=== PATIENT | female | born 1995 | race Caucasian/White ===

== ENCOUNTER 2017-03-31 15:14 | Inpatient (IN) | payer OTHER ==
[2017-03-31] MEDS ORDERED: Sodium Chloride 0.9% 10 ML Syringe FLUSH PRN (15:23)
[2017-03-31] MEDS ORDERED: Ampicillin 2 GM in Sodium Chloride 0.9% 100 ML IV ONE (15:23)
[2017-03-31] MEDS ORDERED: Ampicillin 2 GM Vial ONE (15:27)
[2017-03-31] MEDS ORDERED: Sodium Chloride 0.9% 100 ML ONE (15:29)
[2017-03-31] MEDS ORDERED: Lactated Ringers 1,000 ML IV SCH (15:30)
[2017-03-31] MEDS ORDERED: Oxytocin/Lactated Ringers 10 UNIT/1,000 ML BAG IV SCH (15:30)
[2017-03-31] MEDS ORDERED: Oxytocin/Lactated Ringers 10 UNIT/1,000 ML BAG IV ONE (15:42)
--- NOTE | 2017-03-31 18:33 | PCM.SN ---
- Free Text/Narrative Note: History and physical on chart to be scanned. viable male. 1800. No lacerations. See trace view.
[2017-03-31] MEDS ORDERED: Benzocaine/Menthol 20%-0.5% Spray 56 GM Canister TOP PRN (18:46)
[2017-03-31] MEDS ORDERED: Lanolin 100% Cream 7 GM Tube TOP PRN (18:46)
[2017-03-31] MEDS ORDERED: Witch Hazel Medicated Pads 100/Jar TOP PRN (18:46)
[2017-03-31] MEDS ORDERED: Ampicillin 1 GM in Sodium Chloride 0.9% 100 ML IV SCH (19:30)
[2017-04-01] MEDS: Ibuprofen 600 MG Tab PO PRN ×3 (01:48→21:12)
[2017-04-01] MEDS ORDERED: Sodium Chloride 0.65% Nasal Spray 45 ML Bottle NAS PRN (10:10)
--- NOTE | 2017-04-01 10:20 | PCM.PNPP ---
- General Info Date of Service: 04/01/17 Admission Dx/Problem (Free Text): Spontaneous vaginal delivery on 03/31/17 Functional Status: Reports: pain controlled - Review of Systems General: Reports: No Symptoms HEENT: Reports: no symptoms Pulmonary: Reports: no symptoms Cardiovascular: Reports: No Symptoms Gastrointestinal: Reports: No symptoms Genitourinary: Reports: no symptoms Musculoskeletal: Reports: no symptoms Skin: Reports: other (Petechiae face and upper back) Neurological: Reports: No Symptoms Psychiatric: Reports: no symptoms - General Info Date of Service: 04/01/17 - Patient Data Vital Signs - most recent: Last Vital Signs Temp 97.9 F 04/01/17 09:00 Pulse 86 04/01/17 09:00 Resp 16 04/01/17 09:00 BP 110/65 04/01/17 09:00 Pulse Ox 98 04/01/17 09:00 Weight - most recent: 235 lb I&O - last 24 hours: Intake & Output 03/31/17 04/01/17 04/01/17 22:59 06:59 14:59 Intake Total 800 Balance 800 Lab Results - last 24 hrs: Laboratory Results - last 24 hr 03/31/17 03/31/17 Range/Units 15:40 15:40 WBC 8.99 (3.98-10.04) K/mm3 RBC 4.38 (3.98-5.22) M/mm3 Hgb 12.5 (11.2-15.7) gm/L Hct 36.9 (34.1-44.9) % MCV 84.2 (79.4-94.8) fl MCH 28.5 (25.6-32.2) pg MCHC 33.9 (32.2-35.5) g/dl RDW Std Deviation 41.6 (36.4-46.3) fL Plt Count 276 (182-369) K/mm3 MPV 11.2 (9.4-12.3) fl Neut % (Auto) 64.2 (34.0-71.1) % Lymph % (Auto) 26.9 (19.3-51.7) % Door % (Auto) 8.2 (4.7-12.5) % Eos % (Auto) 0.1 L (0.7-5.8) Baso % (Auto) 0.0 L (0.1-1.2) % Neut # (Auto) 5.77 (1.56-6.13) K/mm3 Lymph # (Auto) 2.42 (1.18-3.74) K/mm3 Door # (Auto) 0.74 H (0.24-0.36) K/mm3 Eos # (Auto) 0.01 L (0.04-0.36) K/mm3 Baso # (Auto) 0.00 L (0.01-0.08) K/mm3 Blood Type O NEGATIVE Gel Antibody Screen Negative Screen 0 ros/5 flds - neg RhIG Candidate? Yes Rhogam Indicated Yes, baby rh pos H Med Orders - Current: Current Medications Benzocaine/Menthol (Dermoplast Pain Relief [place]) 0 gm TOP ASDIRECTED PRN PRN Reason: Perineal Comfort Measure Last Admin: 03/31/17 20:14 Dose: 1 can Emollient Ointment (Lansinoh Hpa) 0 gm TOP ASDIRECTED PRN PRN Reason: Sore Nipples Ibuprofen (Motrin) 600 mg PO Q6H PRN PRN Reason: Mild pain or fever Last Admin: 04/01/17 01:48 Dose: 600 mg Non-Formulary Medication (Acyclovir) 400 mg PO BID DAVID Sodium Chloride ([place] Nasal [place]) 1 ml JOHANA Q2H PRN PRN Reason: Congestion Witch Marie (Tucks) 1 pad TOP ASDIRECTED PRN PRN Reason: Hemorrhoid pain Last Admin: 03/31/17 20:14 Dose: 1 tub Discontinued Medications Ampicillin Sodium (Ampicillin) Confirm Administered Dose 2 gm .ROUTE .STK-MED ONE Stop: 03/31/17 15:28 Last Admin: 03/31/17 15:53 Dose: Not Given Ampicillin Sodium 2 gm/ Sodium (Chloride) 100 mls @ 200 mls/hr IV ONETIME ONE Stop: 03/31/17 15:52 Last Admin: 03/31/17 15:30 Dose: 200 mls/hr Ampicillin Sodium 1 gm/ Sodium (Chloride) 100 mls @ 200 mls/hr IV Q4H DAVID Lactated Ringer's (Ringers, Lactated) 1,000 mls @ 100 mls/hr IV ASDIRECTED DAVID Last Admin: 03/31/17 15:30 Dose: 100 mls/hr Oxytocin/Lactated Ringer's (Pitocin In Lr 10 Units/1,000 Ml) 10 unit in 1,000 mls @ 500 mls/hr IV TITRATE DAVID PRN Reason: Protocol Last Admin: 03/31/17 18:05 Dose: 500 ml/hr, 500 mls/hr Sodium Chloride (Normal Saline) Confirm Administered Dose 100 mls @ as directed .ROUTE .Knock KnockK-MED ONE Stop: 03/31/17 15:30 Last Admin: 03/31/17 15:53 Dose: Not Given Oxytocin/Lactated Ringer's (Pitocin In Lr 10 Units/1,000 Ml) Confirm Administered Dose 10 unit in 1,000 mls @ as directed IV .STK-MED ONE Stop: 03/31/17 15:43 Last Admin: 03/31/17 15:54 Dose: Not Given Sodium Chloride (Saline Flush) 10 ml FLUSH ASDIRECTED PRN PRN Reason: Keep Vein Open - Interaction Infant Disposition, : [place] in Room with Family Interaction: Holding Infant Feeding: Continues to Breastfeed Support Person: - Recovery Exam Fundal Tone: Firm Fundal Level: 1 Fingerbreadths Above Umbilicus Fundal Placement: Midline Lochia Amount: Small Lochia Color: Rubra/Red Episiotomy/Laceration: None Bladder Status: Voiding Urinary Elimination: Voided - Exam General: alert, oriented HEENT: Other (No erythema or ecchymosis, petechiae of both cheeks (probably from vigorous pushing at delivery)) Neck: supple Lungs: Clear to auscultation, Normal respiratory effort Cardiovascular: Regular Rate, Regular Rhythm Abdomen: bowel sounds present, soft, no tenderness, no distension Extremities: no edema Skin: warm, dry, intact, other (Petechiae upper back (probably from pushing hard with contractions in labor)) Psy/Mental Status: alert, normal affect, normal mood - Problem List & Annotations (1) 38 weeks gestation of SNOMED Code(s): 24599815 Code(s): Z3A.38 - 38 WEEKS GESTATION OF Status: Acute Current Visit: Yes (2) Rh negative, delivered, current hospitalization SNOMED Code(s): 245016454, 958130147 Code(s): O09.899 - SUPERVISION OF OTHER HIGH RISK PREGNANCIES, UNSP TRIMESTER Status: Acute Current Visit: Yes (3) Vaginal delivery SNOMED Code(s): 912125191 Status: Acute Current Visit: No (4) GBS carrier SNOMED Code(s): 3843456992588 Code(s): Z22.330 - CARRIER OF GROUP B STREPTOCOCCUS Status: Acute Current Visit: Yes - Problem List Review Problem List Initiated/Reviewed/Updated: No - My Orders Last 24 Hours: My Active Orders 04/01/17 10:10 Sodium Chloride 0.65% [[place] Nasal [place]] 1 ml JOHANA Q2H PRN 04/01/17 21:00 Acyclovir 400 mg PO BID - Plan Plan:: GBS carrier patient received 1 dose of antibiotics IV prior to delivery probably home tomorrow
[2017-04-01 21:07] VITALS: BP 108/59
[2017-04-01] MEDS: Acyclovir 200 MG Cap PO SCH (22:31)
--- NOTE | 2017-04-02 07:46 | PCM.DCSUM1 ---
Discharge Summary - Hospital Course Free Text/Narrative:: [facility] Provider Simple Note Patient Name: IRINA BERGMAN Date of : 89 Patient Status: Inpatient Attending Provider: Yoselyn Henderson Date: 03/31/17 18:30 Initialization Date: 03/31/17 18:30 - Free Text/Narrative Note: History and physical on chart to be scanned. viable male. 1800. No lacerations. See trace view. HPI Initial Comments: [facility] Provider Simple Note Patient Name: IRINA BERGMAN Date of : [birth year] Patient Status: Inpatient Attending Provider: Yoselyn Henderson Date: 03/31/17 18:30 Initialization Date: 03/31/17 18:30 - Free Text/Narrative Note: History and physical on chart to be scanned. viable male. 1800. No lacerations. See trace view. Brief History: [facility] . Provider Simple Note. [facility] [id number]. Date of : Patient Status: Inpatient. Attending Provider: Yoselyn HendersonAccount Number: [id number]. Date: 03/31/17 18:30Initialization Date: 03/31/17 18:30. - Free Text/Narrative. Note: History and physical on chart to be scanned. viable male. 1800. No lacerations. See trace view. - Discharge Data Discharge Date: 04/02/17 Discharge Disposition: Home, Self-Care 01 Condition: Good - Discharge Diagnosis/Problem(s) (1) 38 weeks gestation of SNOMED Code(s): 55654833 ICD Code: Z3A.38 - 38 WEEKS GESTATION OF Status: Acute Current Visit: Yes (2) Rh negative, delivered, current hospitalization SNOMED Code(s): 906236508, 793920888 ICD Code: O09.899 - SUPERVISION OF OTHER HIGH RISK PREGNANCIES, UNSP TRIMESTER Status: Acute Current Visit: Yes (3) Vaginal delivery SNOMED Code(s): 666104546 Status: Acute Current Visit: No (4) GBS carrier SNOMED Code(s): 1977467409679 ICD Code: Z22.330 - CARRIER OF GROUP B STREPTOCOCCUS Status: Acute Current Visit: Yes - Patient Summary/Data Complications: None Consults: None Hospital Course: Uneventful - Patient Instructions Diet: Heart Healthy Diet Driving: Do Not Drive (M 48 hours) Showering/Bathing: May Shower Notify Provider of: Fever, Increased Pain, Swelling and Redness, Drainage, Nausea and/or Vomiting - Discharge Plan Home Medications: Home Meds Acetaminophen [Tylenol] 650 mg PO Q4H PRN #0 tablet 07/07/15 [Rx] Acyclovir 400 mg PO BID 03/31/17 [History] Benzocaine/Menthol [Dermoplast Pain Relief [place]] 1 spray TOP ASDIRECTED PRN #0 canister 04/02/17 [Rx] Ibuprofen [IJD: Ibuprofen] 200 - 600 mg PO Q6H PRN #0 tablet 04/02/17 [Rx] Sodium Chloride 0.65% [[place] Nasal [place]] 1 ml JOHANA Q2H PRN #0 bottle 04/02/17 [ Rx] Witch Marie [Tucks] 1 pad TOP ASDIRECTED PRN #0 pad 04/02/17 [Rx] Referrals: Elizabeth Olsen MD [Physician] - (6 weeks will call Monday to see if need be seen sooner) - Discharge Summary/Plan Comment DC Time >30 min.: No - Patient Data Vitals - Most Recent: Last Vital Signs Temp 98.2 F 04/01/17 21:01 Pulse 89 04/01/17 21:01 Resp 20 04/01/17 21:01 BP 108/59 L 04/01/17 21:01 Pulse Ox 98 04/01/17 21:01 Weight - Most Recent: 235 lb I&O - Last 24 hours: Intake & Output 04/01/17 04/02/17 04/02/17 22:59 06:59 14:59 Intake Total 240 Balance 240 Lab Results - Last 24 hrs: Laboratory Results - last 24 hr 03/31/17 Range/Units 15:40 Blood Type O NEGATIVE Gel Antibody Screen Negative Screen 0 ros/5 flds - neg RhIG Candidate? Yes Rhogam Indicated Yes, baby rh pos H Med Orders - Current: Current Medications Acyclovir (Zovirax) 400 mg PO BID [facility] Last Admin: 04/01/17 22:31 Dose: Not Given Benzocaine/Menthol (Dermoplast Pain Relief [place]) 0 gm TOP ASDIRECTED PRN PRN Reason: Perineal Comfort Measure Last Admin: 03/31/17 20:14 Dose: 1 can Emollient Ointment (Lansinoh Hpa) 0 gm TOP ASDIRECTED PRN PRN Reason: Sore Nipples Ibuprofen (Motrin) 600 mg PO Q6H PRN PRN Reason: Mild pain or fever Last Admin: 04/01/17 21:12 Dose: 600 mg Sodium Chloride ([place] Nasal [place]) 1 ml JOHANA Q2H PRN PRN Reason: Congestion Last Admin: 04/01/17 21:19 Dose: 2 applic Witch Marie (Tucks) 1 pad TOP ASDIRECTED PRN PRN Reason: Hemorrhoid pain Last Admin: 03/31/17 20:14 Dose: 1 tub Discontinued Medications Ampicillin Sodium (Ampicillin) Confirm Administered Dose 2 gm .ROUTE .STK-MED ONE Stop: 03/31/17 15:28 Last Admin: 03/31/17 15:53 Dose: Not Given Ampicillin Sodium 2 gm/ Sodium (Chloride) 100 mls @ 200 mls/hr IV ONETIME ONE Stop: 03/31/17 15:52 Last Admin: 03/31/17 15:30 Dose: 200 mls/hr Ampicillin Sodium 1 gm/ Sodium (Chloride) 100 mls @ 200 mls/hr IV Q4H DAVID Lactated Ringer's (Ringers, Lactated) 1,000 mls @ 100 mls/hr IV ASDIRECTED [facility] Last Admin: 03/31/17 15:30 Dose: 100 mls/hr Oxytocin/Lactated Ringer's (Pitocin In Lr 10 Units/1,000 Ml) 10 unit in 1,000 mls @ 500 mls/hr IV TITRATE DAVID PRN Reason: Protocol Last Admin: 03/31/17 18:05 Dose: 500 ml/hr, 500 mls/hr Sodium Chloride (Normal Saline) Confirm Administered Dose 100 mls @ as directed .ROUTE .STK-MED ONE Stop: 03/31/17 15:30 Last Admin: 03/31/17 15:53 Dose: Not Given Oxytocin/Lactated Ringer's (Pitocin In Lr 10 Units/1,000 Ml) Confirm Administered Dose 10 unit in 1,000 mls @ as directed IV .[facility]-MED ONE Stop: 03/31/17 15:43 Last Admin: 03/31/17 15:54 Dose: Not Given Sodium Chloride (Saline Flush) 10 ml FLUSH ASDIRECTED PRN PRN Reason: Keep Vein Open *Q Meaningful Use (DIS) - VTE *Q VTE Criteria *Q: - Stroke *Q Stroke Criteria *Q: - AMI *Q AMI Criteria *Q:
[2017-04-02] MEDS: Acyclovir 200 MG Cap PO SCH (10:08)
== END 2017-04-02 09:05 | disposition home or self-care (01) | DRG 775 ==
LOC: JD.OBCHECK 15:14 → JD.OB 15:15 → JD.OBCHECK 15:20 → JD.OB 15:21 → OBSVTOIN 18:00
PROVIDERS: ADMIT Obstetrics & Gynecology; ATTEND Obstetrics & Gynecology
PROC: 10E0XZZ Delivery of Products of Conception, External Approach (ICD-10-PCS; principal; 2017-03-31)
PROC: 10907ZC Drainage of Amniotic Fluid, Therapeutic from Products of Conception, Via Natural or Artificial Opening (ICD-10-PCS; 2017-03-31)
DX: O99.824 Streptococcus B carrier state complicating childbirth (principal); Z3A.37 37 weeks gestation of pregnancy; Z37.0 Single live birth; Z88.6 Allergy status to analgesic agent; Z91.09 Other allergy status, other than to drugs and biological substances
CPT/HCPCS: 36415; 85025; 85461; 86850; 86900; 86901; A9270-GY; J0290; J2590; J2790; J7030; J7120

== ENCOUNTER 2019-10-06 19:38 | Emergency (ER) | payer OTHER ==
[2019-10-06 20:03] VITALS: BP 118/68; PULSE 88
--- NOTE | 2019-10-06 20:42 | EDM.PDOC ---
ED HPI GENERAL MEDICAL PROBLEM - General Chief Complaint: LCPC Problem Stated Complaint: POSSIBLE MISCARRIAGE Time Seen by Provider: 10/06/19 19:41 Source of Information: Reports: Patient History Limitations: Reports: No Limitations - History of Present Illness INITIAL COMMENTS - FREE TEXT/NARRATIVE: Mrs. Talley is a very pleasant woman with a past history significant for morbid obesity and polycystic ovarian syndrome, treated with metformin, who states that she was diagnosed with a UTI on 09/18/2019, at the walk-in clinic. She was prescribed trimethoprim/sulfamethoxazole, that she took for 4 days before she developed a side effect, therefore was switched to 10 days of nitrofurantoin, which she completed. Her urinary symptoms subsequently resolved and have not recurred. She states that her LMP was on 09/06/2020. She had a positive home test on 09/30/2019, followed by 2 quantitative hCGs in the clinic. This would put her at 5 weeks 3 days gestation today, by dates, with an LISA of 06/04/2020. She has not undergone an ultrasound during this . She is . She now presents to the ED stating that she has been experiencing 1 week of right-sided abdominal pain throbbing in character, then became much worse and sharp and stabbing in character around 18:00 this evening. She also has right flank pain that radiates to her right lower quadrant, her right groin, and down her right lower extremity. She has not identified any modifiers of her pain. She has also been experiencing come and go nausea without emesis over the past week. She has also had low-grade fevers, typically around 101-102, on and off for the past week, up to a Tmax of 102.4 yesterday. She denies having any recent vaginal bleeding or discharge. No recent cough or dyspnea. No history of kidney stones. No prior similar symptoms. The patient last ate around 17:30 tonight. The patient's PCP is JHONNY Weston. Her LCPC is Dr. Elizabeth Olsen. She received an influenza vaccine this season. Right Abdomen Pain Score (Numeric/FACES): 7 - Related Data Allergies Allergy/AdvReac Type Severity Reaction Status Date / Time adhesive tape Allergy Rash Verified 08/12/18 14:57 nifedipine [From Procardia] Allergy Rash Verified 08/12/18 15:05 morphine AdvReac Respiratory Verified 08/12/18 14:57 Depression Home Meds: Home Meds . [No Known Home Meds] 10/06/19 [History] Past Medical History LCPC History: Reports: Polycystic Ovaries : 4 Para: 3 Endocrine/Metabolic History: Reports: Obesity/BMI 30+ - Infectious Disease History Infectious Disease History: Reports: Herpes - Past Surgical History HEENT Surgical History: Reports: Tonsillectomy Musculoskeletal Surgical History: Reports: Arthroscopic Knee (left ACL repair) Social & Family History - Family History Family Medical History: Noncontributory - Tobacco Use Smoking Status *Q: Never Smoker - Caffeine Use Caffeine Use: Reports: Coffee, Tea - Alcohol Use Alcohol Use History: No - Recreational Drug Use Recreational Drug Use: No - Living Situation & Occupation Living situation: Reports: , with Spouse, with Family (3 kids) 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 ED EXAM, GI/ABD - Physical Exam Exam: See Below Exam Limited By: No Limitations General Appearance: Alert, WD/WN, No Apparent Distress, Anxious Eyes: Bilateral: Normal Appearance, EOMI Ears: Normal External Exam, Hearing Grossly Normal Nose: Normal Inspection Throat/Mouth: Normal Inspection, Normal Lips, Normal Voice, No Airway Compromise Head: Atraumatic, Normocephalic Neck: Normal Inspection, Full Range of Motion Respiratory/Chest: No Respiratory Distress, Lungs Clear, Normal Breath Sounds, No Accessory Muscle Use Cardiovascular: Normal Peripheral Pulses, Regular Rate, Rhythm, No Edema, No Gallop, No JVD, No Murmur, No Rub GI/Abdominal Exam: Normal Bowel Sounds, Soft, No Organomegaly, No Distention, No Abnormal Bruit, No Mass, Tender (Exquisite tenderness to the mid-right abdomen, and tender in the right lower quadrant, as well. Rovsing sign is present, but the patient's abdomen is otherwise nontender. Obturator sign absent. Psoas maneuver induces relief. Heel drop sign present.) (Female) Exam: Deferred Rectal (Female) Exam: Deferred Back Exam: Normal Inspection, Full Range of Motion, CVA Tenderness (R) ( percussion induces abdominal pain). No: CVA Tenderness (L) Extremities: Normal Inspection, Normal Range of Motion, No Pedal Edema, Normal Capillary Refill Neurological: Alert, Oriented, Normal Cognition, No Motor/Sensory Deficits Psychiatric: Anxious Skin Exam: Warm, Dry, Intact, Normal Color, No Rash Course - Vital Signs Last Recorded V/S: Last Vital Signs Temp 36.9 C 10/06/19 19:59 Pulse 88 10/06/19 19:59 Resp 20 10/06/19 19:59 BP 118/68 10/06/19 19:59 Pulse Ox 99 10/06/19 19:59 - Orders/Labs/Meds Orders: Active Orders 24 hr Category Date Time Status Abdomen Pelvis w Cont [CT] Stat Exams 10/06/19 20:34 Taken OB Transvaginal [US] Stat Exams 10/06/19 20:32 Taken Retroperitoneal Comp [US] Stat Exams 10/06/19 20:33 Taken Lactated Ringers [Ringers, Lactated] 1,000 ml Med 10/06/19 20:45 Active IV ASDIRECTED Sodium Chloride 0.9% [Saline Flush] Med 10/06/19 23:05 Active 10 ml FLUSH ONETIME PRN Medication Orders Lactated Ringer's (Ringers, Lactated) 1,000 mls @ 125 mls/hr IV ASDIRECTED DAVID Last Admin: 10/06/19 20:46 Dose: 125 mls/hr Sodium Chloride (Saline Flush) 10 ml FLUSH ONETIME PRN PRN Reason: KEEP VEIN OPEN Last Admin: 10/07/19 00:01 Dose: 10 ml Labs: Laboratory Tests 10/06/19 10/06/19 10/06/19 Range/Units 20:10 20:10 20:10 WBC 8.49 (3.98-10.04) K/mm3 RBC 4.84 (3.98-5.22) M/mm3 Hgb 13.6 (11.2-15.7) gm/dl Hct 41.5 (34.1-44.9) % MCV 85.7 (79.4-94.8) fl MCH 28.1 (25.6-32.2) pg MCHC 32.8 (32.2-35.5) g/dl RDW Std Deviation 41.6 (36.4-46.3) fL Plt Count 344 (182-369) K/mm3 MPV 10.7 (9.4-12.3) fl Neutrophils % (Manual) 73 H (40-60) % Band Neutrophils % 0 (0-10) % Lymphocytes % (Manual) 24 (20-40) % Atypical Lymphs % 0 % Monocytes % (Manual) 2 (2-10) % Eosinophils % (Manual) 1 (0.7-5.8) % Basophils % (Manual) 0 L (0.1-1.2) Platelet Estimate Adequate RBC Morph Comment Normal Sodium 140 (136-145) mEq/L Potassium 3.7 (3.5-5.1) mEq/L Chloride 103 (98-107) mEq/L Carbon Dioxide 27 (21-32) mEq/L Anion Gap 13.7 (5-15) BUN 16 (7-18) mg/dL Creatinine 1.0 (0.55-1.02) mg/dL Est Cr Clr Drug Dosing 64.89 mL/min Estimated GFR (MDRD) > 60 (>60) mL/min BUN/Creatinine Ratio 16.0 (14-18) Glucose 93 (74-106) mg/dL Calcium 9.7 (8.5-10.1) mg/dL Total Bilirubin 0.6 (0.2-1.0) mg/dL AST 11 L (15-37) U/L ALT 24 (14-59) U/L Alkaline Phosphatase 79 (46-116) U/L Total Protein 7.9 (6.4-8.2) g/dl Albumin 4.0 (3.4-5.0) g/dl Globulin 3.9 gm/dL Albumin/Globulin Ratio 1.0 (1-2) HCG, Quant 4645.0 mIU/mL Urine Color (Yellow) Urine Appearance (Clear) Urine pH (5.0-8.0) Ur Specific [place] (1.005-1.030) Urine Protein (Negative) Urine Glucose (UA) (Negative) Urine Ketones (Negative) Urine Occult Blood (Negative) Urine Nitrite (Negative) Urine Bilirubin (Negative) Urine Urobilinogen (0.2-1.0) Ur Leukocyte Esterase (Negative) Urine RBC (0-5) /hpf Urine WBC (0-5) /hpf Ur Squamous Epith Cells (0-5) /hpf Amorphous Sediment (NOT SEEN) /hpf Urine Bacteria (FEW) /hpf Urine Mucus (FEW) /hpf Blood Type O NEGATIVE 10/06/19 Range/Units 20:33 WBC (3.98-10.04) K/mm3 RBC (3.98-5.22) M/mm3 Hgb (11.2-15.7) gm/dl Hct (34.1-44.9) % MCV (79.4-94.8) fl MCH (25.6-32.2) pg MCHC (32.2-35.5) g/dl RDW Std Deviation (36.4-46.3) fL Plt Count (182-369) K/mm3 MPV (9.4-12.3) fl Neutrophils % (Manual) (40-60) % Band Neutrophils % (0-10) % Lymphocytes % (Manual) (20-40) % Atypical Lymphs % % Monocytes % (Manual) (2-10) % Eosinophils % (Manual) (0.7-5.8) % Basophils % (Manual) (0.1-1.2) Platelet Estimate RBC Morph Comment Sodium (136-145) mEq/L Potassium (3.5-5.1) mEq/L Chloride (98-107) mEq/L Carbon Dioxide (21-32) mEq/L Anion Gap (5-15) BUN (7-18) mg/dL Creatinine (0.55-1.02) mg/dL Est Cr Clr Drug Dosing mL/min Estimated GFR (MDRD) (>60) mL/min BUN/Creatinine Ratio (14-18) Glucose (74-106) mg/dL Calcium (8.5-10.1) mg/dL Total Bilirubin (0.2-1.0) mg/dL AST (15-37) U/L ALT (14-59) U/L Alkaline Phosphatase (46-116) U/L Total Protein (6.4-8.2) g/dl Albumin (3.4-5.0) g/dl Globulin gm/dL Albumin/Globulin Ratio (1-2) HCG, Quant mIU/mL Urine Color Yellow (Yellow) Urine Appearance Clear (Clear) Urine pH 7.0 (5.0-8.0) Ur Specific [place] 1.025 (1.005-1.030) Urine Protein Negative (Negative) Urine Glucose (UA) Negative (Negative) Urine Ketones Trace H (Negative) Urine Occult Blood Negative (Negative) Urine Nitrite Negative (Negative) Urine Bilirubin Negative (Negative) Urine Urobilinogen 0.2 (0.2-1.0) Ur Leukocyte Esterase Negative (Negative) Urine RBC 0-5 (0-5) /hpf Urine WBC 0-5 (0-5) /hpf Ur Squamous Epith Cells 5-10 H (0-5) /hpf Amorphous Sediment Moderate H (NOT SEEN) /hpf Urine Bacteria Few (FEW) /hpf Urine Mucus Few (FEW) /hpf Blood Type Meds: Medications Generic Name Dose Route Start Last Admin Trade Name Freq PRN Reason Stop Dose Admin Lactated Ringer's 1,000 mls @ 125 mls/hr 10/06/19 20:45 10/06/19 20:46 Ringers, Lactated IV 125 mls/hr ASDIRECTED DAVID Administration Sodium Chloride 10 ml 10/06/19 23:05 10/07/19 00:01 Saline Flush FLUSH 10 ml ONETIME PRN Administration KEEP VEIN OPEN Discontinued Medications Generic Name Dose Route Start Last Admin Trade Name Freq PRN Reason Stop Dose Admin Diatrizoate Meglum/Diatrizoate Sod 60 ml 10/06/19 21:15 10/07/19 00:00 Gastrografin 37% PO 10/06/19 21:16 60 ml ONETIME ONE Administration Iopamidol 100 ml 10/07/19 00:05 10/07/19 00:07 Isovue-300 (61%) IVPUSH 10/07/19 00:06 100 ml ONETIME ONE Administration - Re-Assessments/Exams Free Text/Narrative Re-Assessment/Exam: 10/06/19 20:36 The patient's situation is complicated by her early . Her physical examination is highly concerning for acute appendicitis, possibly with perforation, however, it is also possible that she is suffering from an unusual presentation of a ruptured ectopic . If that were the case, however, one would wonder why the patient is not having any vaginal bleeding. It is also possible that the patient is suffering from a right-sided ureterolith, however, she complains of right flank pain, but on examination, she has no CVA tenderness , and a ureterolith can cause abdominal pain, but should not cause abdominal tenderness, whereas in this case, the patient has exquisite right abdominal tenderness. Obviously, the patient would like to avoid radiation as much as possible, although I explained to the patient that it is imperative that we make sure that she does not have appendicitis, because if left untreated, she will likely lose her . The patient seems to understand that. We will proceed as follows: The patient will provide a urine sample. An IV will be placed to draw blood and give IV fluid. She declined an offer for both pain medication and anti-nausea medicine at this time. She will start drinking oral contrast. She will be taken over to the ultrasound suite to undergo a transvaginal ultrasound to evaluate for an ectopic , as well as a renal ultrasound to evaluate for hydronephrosis/hydroureter, consistent with a ureterolith. If her ultrasounds are nondiagnostic, she will then undergo a CT scan of the abdomen and pelvis with oral and IV contrast. 10/06/19 22:30 The patient's CBC is unremarkable. Her CMP is unremarkable. Her quantitative hCG is 4645. Transvaginal ultrasound is read by [facility] as: 1. Single intrauterine gestation. 2. There is probably a hemorrhagic corpus luteum cyst of the right ovary. Retroperitoneal ultrasound is read by [facility] as "No right hydronephrosis." The patient's ABO-Rh is still pending. The patient will proceed for a CT scan of her abdomen and pelvis with oral and IV contrast. 10/06/19 22:41 The patient is upset about the prospect of undergoing a CT scan, and had convinced herself that she was not going to do it, therefore she did not drink the oral contrast as planned. I explained to the patient that at this point, the patient has appendicitis until proven otherwise, and that the only modality that we have at our disposal, other than having the patient go to the operating room and have the surgeon look directly, which is not an option for us, since the anesthesia itself carries risk, is a CT scan. MRI is not available to us. The patient got her on the phone and I explained the same. The patient' s opined that the patient should proceed with a CT scan, and the patient has agreed. She will start drinking the oral contrast now. 10/07/19 00:51 The patient's blood type is O-Neg CT of the abdomen and pelvis with oral and IV contrast is read by [facility] as: 1. No evidence of appendicitis with normal appendix identified. 2. Tiny cystic structure within the uterus which is consistent with known intrauterine gestational sac. 3. Small complex right ovarian lesion which corresponds to ultrasound finding and likely represents a corpus luteum. 4. No acute abdominal findings. 10/07/19 01:06 Test results discussed with the patient and her (now present). As above , today's workup is entirely unremarkable, and does not explain the cause of her pain or abdominal tenderness. We can blame the hemorrhagic corpus luteum on the right ovary, except that its location is in the pelvis, yet her tenderness is in the lower right quadrant of her abdomen. Additionally, we would not expect a hemorrhagic corpus luteum to cause as much pain and tenderness as the patient is experiencing, nor would it explain the patient's fever, therefore I am reluctant to blame the corpus luteum. I offered to place the patient into observation, but she would prefer to go home. I would like her to follow-up with Dr. Olsen at the next available appointment. Departure - Departure Time of Disposition: 01:07 Disposition: Home, Self-Care 01 Condition: Good Clinical Impression: Right lower quadrant abdominal pain of unknown etiology, and not yet delivered in first trimester - Discharge Information *PRESCRIPTION DRUG MONITORING PROGRAM REVIEWED*: Not Applicable *COPY OF PRESCRIPTION DRUG MONITORING REPORT IN PATIENT JUNIOR: Not Applicable Referrals: Elizabeth Olsen MD [Primary Care Provider] - Radha Arana PA-C [Ordering Only Provider] - Forms: ED Department Discharge Additional Instructions: You were seen in the emergency room for 1 week of low-level lower right abdominal pain that got worse tonight, a low-grade fever that got worse yesterday, and nausea, associated with early . Workup in the ER included blood work, a urinalysis, an obstetric ultrasound, a renal ultrasound, and a CT scan of your abdomen and pelvis. Your entire workup was unremarkable, and does not explain the cause of your pain. You were found to have a small complex right ovarian lesion that the Radiologist felt was likely a hemorrhagic corpus luteum. It is possible that this is the cause of your pain. Your quantitative hCG ( hormone level) was 4645. Your blood type is O- negative. Placement into observation was offered, but declined. Take [id number] Tylenol as needed for discomfort. We recommend that you follow-up with your [employer]n Door Builder, Dr. Elizabeth Olsen, at the next available appointment. Let the ged teacher know that you are following up from the ER. If any other problems, please do not hesitate to return to the ER. Sepsis Event Note - Evaluation Sepsis Screening Result: No Definite Risk - Focused Exam Vital Signs: Vital Signs Temp Pulse Resp BP Pulse Ox 10/06/19 19:59 36.9 C 88 20 118/68 99 Date Exam was Performed: 10/07/19 Time Exam was Performed: 00:55 - My Orders Last 24 Hours: My Active Orders 10/06/19 20:32 OB Transvaginal [US] Stat 10/06/19 20:33 Retroperitoneal Comp [US] Stat 10/06/19 20:34 Abdomen Pelvis w Cont [CT] Stat 10/06/19 20:45 Lactated Ringers [Ringers, Lactated] 1,000 ml IV ASDIRECTED 10/06/19 23:05 Sodium Chloride 0.9% [Saline Flush] 10 ml FLUSH ONETIME PRN - Assessment/Plan Last 24 Hours: My Active Orders 10/06/19 20:32 OB Transvaginal [US] Stat 10/06/19 20:33 Retroperitoneal Comp [US] Stat 10/06/19 20:34 Abdomen Pelvis w Cont [CT] Stat 10/06/19 20:45 Lactated Ringers [Ringers, Lactated] 1,000 ml IV ASDIRECTED 10/06/19 23:05 Sodium Chloride 0.9% [Saline Flush] 10 ml FLUSH ONETIME PRN
[2019-10-06] MEDS ORDERED: Lactated Ringers 1,000 ML IV SCH (20:45)
[2019-10-06] MEDS ORDERED: Diatrizoate Meglumine/Diatrizoate Sodium 37% 120 ML Bottle PO ONE (21:15)
[2019-10-06] MEDS ORDERED: Sodium Chloride 0.9% 10 ML Syringe FLUSH PRN (23:05)
[2019-10-06] MEDS ORDERED: Iopamidol 755 Mg/ML 100 ML Bottle IVPUSH ONE (23:05)
[2019-10-07] MEDS ORDERED: Iopamidol 612 MG/ML 100 ML Bottle IVPUSH ONE (00:05)
--- NOTE | 2019-10-07 07:25 | US ---
Renal ultrasound: Multiple real-time images were obtained transabdominally. Kidneys show no hydronephrosis or mass. Resistivity indices are within normal limits. Right kidney length is 10.9 cm and left kidney length is 10.4 cm. Bilateral ureteral jets are seen within the bladder. Bladder empties completely on post void exam. Impression: 1. No abnormality is identified on renal ultrasound exam. Diagnostic code #1 This report was dictated in [place] Standard Time I agree with preliminary report from [facility], finalized on 10/06/19, 11:08 PM Central Time
--- NOTE | 2019-10-07 07:25 | CT ---
CT abdomen and pelvis Technique: Multiple axial sections were obtained from above the dome of the diaphragm inferiorly through the pubic symphysis. Intravenous and oral contrast was utilized. Findings: Visualized lung bases show nothing acute. Liver contains no focal abnormality. Gallbladder contains no calcified gallstones. Spleen appears within normal limits. Adrenal glands show no nodule. Kidneys show contrast enhancement without hydronephrosis or mass. Pancreas contains no focal abnormality. Aorta shows no aneurysm. No retroperitoneal adenopathy or mesenteric abnormalities are seen. Small gestational sac is noted within the endometrial cavity which was noted on recent ultrasound exam performed earlier on the same day (9:24 PM). No adnexal abnormalities are seen. Small collapsing corpus luteum cyst is noted within the right ovary measuring 2.5 cm. Appendix is seen and is normal in size. No free fluid or inflammatory change is seen Bone window settings were reviewed which appears within normal limits. Impression: 1. Nothing acute is appreciated on CT study of the abdomen and pelvis. 2. Small gestational sac is noted within the endometrial cavity seen on recent ultrasound. Diagnostic code #1 This report was dictated in [place] Standard Time I agree with preliminary report from [facility], finalized on 10/07/19, 1:41 AM Central Time
--- NOTE | 2019-10-07 07:30 | US ---
First trimester obstetrical ultrasound: Multiple real-time images were obtained transvaginally. Transabdominal imaging was obtained of the right lower abdomen. Small intrauterine gestational sac is seen. Yolk sac is noted but is too early to visualized pole. No subchorionic hemorrhage is seen. Small moderate free fluid is seen believed to be incidental. Complicated finding noted within the right ovary measuring 2.3 cm in greatest size. This is most likely due to hemorrhagic corpus luteum cyst. No additional adnexal or ovarian abnormalities are seen. Impression: 1. Small intrauterine gestational sac containing yolk sac. pole not identified at this time but this is most likely due to early gestational age. 2. 2.3 cm complicated finding within the right ovary most likely representing hemorrhagic corpus luteum cyst. Diagnostic code #2 This report was dictated in [place] Standard Time I agree with preliminary report from [facility], finalized on 10/06/19, 11:07 PM Central Time
== END 2019-10-07 01:22 | disposition home or self-care (01) ==
LOC: JD.ED 19:38
DX: O99.89 Other specified diseases and conditions complicating pregnancy, childbirth and the puerperium (principal); R10.31 Right lower quadrant pain; O99.211 Obesity complicating pregnancy, first trimester; E66.9 Obesity, unspecified; Z3A.01 Less than 8 weeks gestation of pregnancy; Z91.09 Other allergy status, other than to drugs and biological substances; Z88.5 Allergy status to narcotic agent
CPT/HCPCS: 36415; 74177; 76770; 76817; 80053; 81001; 84702; 85007; 85027; 86900; 86901; 96360; 96361; 99284; J7120; Q9963; Q9967; 99283

== ENCOUNTER 2020-05-01 14:09 | Observation (INO) | payer OTHER ==
[2020-05-01] MEDS ORDERED: Sodium Chloride 0.9% 10 ML Syringe FLUSH PRN (14:20)
[2020-05-01] MEDS ORDERED: Lactated Ringers 1,000 ML IV SCH (14:30)
[2020-05-01] MEDS ORDERED: Betamethasone Acetate/Betamethasone Sod Phosphate 30 MG/5 ML MDV IM ONE (14:30)
--- NOTE | 2020-05-01 15:12 | PCM.LDHP ---
L&D History of Present Illness - General Date of Service: 05/01/20 Admit Problem/Dx: Patient Status Order with Admit Dx/Problem 05/01/20 14:21 Patient Status [ADT] Routine Admission Diagnosis/Problem Admission Diagnosis/Problem labor Source of Information: Patient History Limitations: Reports: No Limitations - History of Present Illness Introduction:: Patient is a 24 y/o at 35 1/7 wks who presents for concerns of contractions. Has been having bothersome contractions throughout course of , but these worsened last night. Rates as a 5/10. No associated bleeding or fluid leaking. Notes good FM - Related Data Allergies/Adverse Reactions: Allergies Allergy/AdvReac Type Severity Reaction Status Date / Time adhesive tape Allergy Rash Verified 08/12/18 14:57 nifedipine [From Procardia] Allergy Rash Verified 08/12/18 15:05 morphine AdvReac Respiratory Verified 08/12/18 14:57 Depression Home Medications: Home Meds . [No Known Home Meds] 10/06/19 [History] Past Medical History Genitourinary History: Reports: Other (See Below) Other Genitourinary History: HSV FLIGHT PURSER History: Reports: Ectopic , Polycystic Ovaries, , Therapeutic : 5 Para: 3 LMP (Approximate): Psychiatric History: Reports: Depression Endocrine/Metabolic History: Reports: Obesity/BMI 30+ - Infectious Disease History Infectious Disease History: Reports: Herpes - Past Surgical History HEENT Surgical History: Reports: Tonsillectomy, Other (See Below) (Eustacian tube) Musculoskeletal Surgical History: Reports: Arthroscopic Knee (left ACL repair) Social & Family History - Family History Family Medical History: Noncontributory - Tobacco Use Smoking Status *Q: Never Smoker - Caffeine Use Caffeine Use: Reports: Coffee, Tea - Alcohol Use Alcohol Use History: No - Recreational Drug Use Recreational Drug Use: No - Living Situation & Occupation Living situation: Reports: , with Spouse, with Family (3 kids) 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 Review of Systems - Review of Systems: Review Of Systems: See Below General: Reports: No Symptoms Pulmonary: Reports: No Symptoms Cardiovascular: Reports: No Symptoms Gastrointestinal: Reports: Abdominal Pain Genitourinary: Reports: No Symptoms Musculoskeletal: Reports: No Symptoms Psychiatric: Reports: No Symptoms Neurological: Reports: No Symptoms L&D Exam - Exam Exam: See Below - OB Specific Contraction Intensity: Irritability Movement: Active Heart Tones: Present Heart Tones per Min: 130 Heart Rate (FHR) Variability: Moderate (6-25 bmp) Presentation: Vertex - Holley Score Holley Score Cervix Position: Posterior Holley Score Consistency: Soft Holley Score Effacement: 31-50% Holley Score Dilation: 1-2 cm (2-3) Holley Score Infant's Station: -2 Holley Score Total: 5 - Exam General: Alert, Oriented, Cooperative GI/Abdominal Exam: Soft, Non-Tender Genitourinary: Normal external exam Extremities: Normal Inspection Skin: Warm, Dry, Intact - Problem List (1) 35 weeks gestation of SNOMED Code(s): 15383177 ICD Code: Z3A.35 - 35 WEEKS GESTATION OF Status: Acute Current Visit: Yes (2) contractions SNOMED Code(s): 029397726 Status: Acute Current Visit: No (3) Rh negative state in antepartum period SNOMED Code(s): 312621743 Status: Acute Current Visit: No Problem List Initiated/Reviewed/Updated: Yes Orders Last 24hrs: Active Orders 24 hr Category Date Time Status Patient Status [ADT] Routine ADT 05/01/20 14:21 Active Non Stress Test [RC] PER UNIT ROUTINE Care 05/01/20 14:21 Active Peripheral IV Care [RC] . DIRECTED Care 05/01/20 14:22 Active Vital Signs [RC] PER UNIT ROUTINE Care 05/01/20 14:21 Active Lactated Ringers [Ringers, Lactated] 1,000 ml Med 05/01/20 14:30 Active IV .BOLUS Sodium Chloride 0.9% [Saline Flush] Med 05/01/20 14:20 Active 10 ml FLUSH ASDIRECTED PRN Peripheral IV Insertion Adult [OM.PC] Urgent Oth 05/01/20 14:20 Ordered Resuscitation Status Routine Resus Stat 05/01/20 14:20 Ordered Medication Orders Lactated Ringer's (Ringers, Lactated) 1,000 mls @ 500 mls/hr IV .BOLUS DAVID Last Admin: 05/01/20 14:53 Dose: 500 mls/hr Documented by: JON Sodium Chloride (Saline Flush) 10 ml FLUSH ASDIRECTED PRN PRN Reason: Keep Vein Open Assessment/Plan Comment:: * Exam about 2-3 cm. 12 mg of IM betamethasone given. Given 1L bolus. GBS negative. Reviewed options. At this point can travel by private car to [place] if desires as not able to keep here in [place] for delivery. Possible not labor and contractions will dissipate. If stays for reassessment and cervix makes change would likely need to travel then by Ambulance. Family expressed understanding. Will stay for reassessment in 1 hour. Further management at that point. * Reassessment shows cervix unchanged although patient does note a few painful contractions. Reviewed options. Patient would just like to go home from hospital at this time. Suggested patient get a hotel in [place] for the night. If contractions worsen can present to L&D there as we are unfortunately not able to deliver her here. If contractions lessen overnight she can return to [place] in the AM for her 2nd injection of betamethasone. She and her agree with this plan. Will reach out to us if further concerns. Elizabeth Olsen MD
[2020-05-01 15:15] VITALS: BP 114/62; PULSE 98
== END 2020-05-01 15:50 | disposition home or self-care (01) ==
LOC: EDSTATUS 14:25 → JD.OB 14:29
PROVIDERS: ADMIT Obstetrics & Gynecology; ATTEND Obstetrics & Gynecology
DX: O60.03 Preterm labor without delivery, third trimester (principal); O99.213 Obesity complicating pregnancy, third trimester; E66.9 Obesity, unspecified; O99.343 Other mental disorders complicating pregnancy, third trimester; F32.9 Major depressive disorder, single episode, unspecified; Z88.5 Allergy status to narcotic agent; Z88.8 Allergy status to other drugs, medicaments and biological substances; Z67.41 Type O blood, Rh negative; Z3A.35 35 weeks gestation of pregnancy
CPT/HCPCS: 59025; 96360; 96372; J0702; J7120

== ENCOUNTER 2020-05-21 16:10 | Inpatient (IN) | payer OTHER ==
[2020-05-21] MEDS ORDERED: Sodium Chloride 0.9% 10 ML Syringe FLUSH PRN (16:19)
[2020-05-21] MEDS ORDERED: Nalbuphine 10 MG/ML Syringe IVPUSH PRN (16:19)
[2020-05-21] MEDS ORDERED: Ondansetron 4 MG/2 ML SDV IVPUSH PRN (16:19)
[2020-05-21] MEDS ORDERED: Lidocaine 1% 50 ML MDV INJECT ONE (16:19)
[2020-05-21] MEDS ORDERED: Oxytocin/Lactated Ringers 10 UNIT/1,000 ML BAG IV SCH (16:30)
[2020-05-21] MEDS ORDERED: Lactated Ringers 1,000 ML IV SCH (16:30)
--- NOTE | 2020-05-21 16:36 | PCM.LDHP ---
L&D History of Present Illness - General Date of Service: 05/21/20 Admit Problem/Dx: Patient Status Order with Admit Dx/Problem 05/21/20 16:19 Patient Status [ADT] Routine Admission Diagnosis/Problem Admission Diagnosis/Problem Source of Information: Patient History Limitations: Reports: No Limitations - History of Present Illness Introduction:: Patient is a 24 y/o at 38 0/7 wks gestation. Has had on and off bothersome contractions throughout the last few weeks of her . This AM was about 5 cm dilated in clinic, but still fairly posterior. Was advised to monitor and return as needed. Did come back to clinic at end of day and noted still very uncomfortable contractions. Was about 5-6 cm dilated. Decided to admit for labor - Related Data Allergies/Adverse Reactions: Allergies Allergy/AdvReac Type Severity Reaction Status Date / Time adhesive tape Allergy Rash Verified 05/21/20 16:17 nifedipine [From Procardia] Allergy Rash Verified 05/21/20 16:17 morphine AdvReac Respiratory Verified 05/21/20 16:17 Depression Home Medications: Home Meds Acyclovir 400 mg PO TID 05/21/20 [History] Past Medical History ESTHETICIAN SPA History: Reports: Ectopic , Polycystic Ovaries, : 5 Para: 3 LMP (Approximate): Psychiatric History: Reports: Depression Endocrine/Metabolic History: Reports: Obesity/BMI 30+ - Infectious Disease History Infectious Disease History: Reports: Herpes - Past Surgical History HEENT Surgical History: Reports: Tonsillectomy, Other (See Below) (Eustacian tube) Musculoskeletal Surgical History: Reports: Arthroscopic Knee (left ACL repair) Social & Family History - Family History Family Medical History: Noncontributory - Tobacco Use Smoking Status *Q: Never Smoker - Caffeine Use Caffeine Use: Reports: Coffee, Tea - Alcohol Use Alcohol Use History: No - Recreational Drug Use Recreational Drug Use: No - Living Situation & Occupation Living situation: Reports: , with Spouse, with Family (3 kids) 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 Review of Systems - Review of Systems: Review Of Systems: See Below General: Reports: No Symptoms Pulmonary: Reports: No Symptoms Cardiovascular: Reports: No Symptoms Gastrointestinal: Reports: Abdominal Pain Genitourinary: Reports: No Symptoms Musculoskeletal: Reports: No Symptoms Psychiatric: Reports: No Symptoms Neurological: Reports: No Symptoms L&D Exam - Exam Exam: See Below - Vital Signs Weight: 109.543 kg - OB Specific Contraction Intensity: Moderate Movement: Active Heart Tones: Present Heart Tones per Min: 125 Heart Rate (FHR) Variability: Moderate (6-25 bmp) Presentation: Vertex - Holley Score Holley Score Cervix Position: Posterior Holley Score Consistency: Soft Holley Score Effacement: 51-70% Holley Score Dilation: > 5 cm Holley Score 's Station: -2 Holley Score Total: 8 - Exam General: Alert, Oriented, Cooperative Lungs: Clear to Auscultation, Normal Respiratory Effort Cardiovascular: Regular Rate, Regular Rhythm GI/Abdominal Exam: Soft, Non-Tender Genitourinary: Normal external exam Extremities: Normal Inspection Skin: Warm, Dry, Intact - Patient Data Result Diagrams: 05/21/20 16:58 - Problem List (1) 38 weeks gestation of SNOMED Code(s): 69174327 ICD Code: Z3A.38 - 38 WEEKS GESTATION OF Status: Acute Current Visit: No (2) Rh negative state in antepartum period SNOMED Code(s): 167901585 Status: Acute Current Visit: No Problem List Initiated/Reviewed/Updated: Yes Orders Last 24hrs: Active Orders 24 hr Category Date Time Status Patient Status [ADT] Routine ADT 05/21/20 16:19 Active Activity as Tolerated [RC] PFP Care 05/21/20 16:19 Active Communication Order [RC] ASDIRECTED Care 05/21/20 16:19 Active Heart Tones [RC] ASDIRECTED Care 05/21/20 16:19 Active Non Stress Test [RC] PER UNIT ROUTINE Care 05/21/20 16:19 Active Notify Provider [RC] PFP Care 05/21/20 16:19 Active Notify Provider [RC] PRN Care 05/21/20 16:19 Active Peripheral IV Care [RC] . DIRECTED Care 05/21/20 16:19 Active Pump Management, Intrathecal [RC] ASDIRECTED Care 05/21/20 16:20 Active Urinary Catheter Assessment [RC] ASDIRECTED Care 05/21/20 16:19 Active Vital Signs [RC] PER UNIT ROUTINE Care 05/21/20 16:19 Active Regular Diet [DIET] Diet 05/21/20 Dinner Active CBC WITH AUTO DIFF [HEME] Stat Lab 05/21/20 16:19 Ordered RAPID PLASMA REAGIN,RPR [CHEM] Routine Lab 05/21/20 16:19 Ordered TYPE AND SCREEN [BBK] Stat Lab 05/21/20 16:19 Ordered Lactated Ringers [Ringers, Lactated] 1,000 ml Med 05/21/20 16:30 Active IV ASDIRECTED Nalbuphine [Nubain] Med 05/21/20 16:19 Active 10 mg IVPUSH Q2H PRN Ondansetron [Zofran] Med 05/21/20 16:19 Active 4 mg IVPUSH Q4H PRN Oxytocin/Lactated Ringers [Pitocin in LR 10 Units/1,000 Med 05/21/20 16:30 Active ML] 10 unit in 1,000 ml IV .CONTINUOUS Sodium Chloride 0.9% [Saline Flush] Med 05/21/20 16:19 Active 10 ml FLUSH ASDIRECTED PRN Electronic Heart Tones Ext w TOCO [WOMSER] Oth 05/21/20 16:19 Ordered Routine Electronic Heart Tones Internal [WOMSER] Per Unit Oth 05/21/20 16:19 Ordered Routine Peripheral IV Insertion Adult [OM.PC] Routine Oth 05/21/20 16:19 Ordered Resuscitation Status Routine Resus Stat 05/21/20 16:19 Ordered Medication Orders Oxytocin/Lactated Ringer's (Pitocin In Lr 10 Units/1,000 Ml) 10 unit in 1,000 mls @ 500 mls/hr IV .CONTINUOUS DAVID Lactated Ringer's (Ringers, Lactated) 1,000 mls @ 100 mls/hr IV ASDIRECTED DAVID Nalbuphine HCl (Nubain) 10 mg IVPUSH Q2H PRN PRN Reason: Pain Ondansetron HCl (Zofran) 4 mg IVPUSH Q4H PRN PRN Reason: Nausea/Vomiting Sodium Chloride (Saline Flush) 10 ml FLUSH ASDIRECTED PRN PRN Reason: Keep Vein Open Assessment/Plan Comment:: * Labs done * GBS negative * Pain management per patient preference * Anticipate
--- NOTE | 2020-05-21 20:14 | PCM.DEL ---
L & D Note - General Info Date of Service: 05/21/20 - Delivery Note Labor: Spontaneous Delivery Outcome: Livebirth Delivery Method: Spontaneous Vaginal Delivery-Single Delivery Mode: Spontaneous Presentation: Right Occiput Anterior (LEILANI) Nuchal Cord: Present Anesthesia Type: None Amniotic Fluid Description: Clear Episiotomy Type: None Laceration: None Placenta: Intact, Spontaneous Cord: 3 Vessels Estimated Blood Loss: 100 Resuscitation Needed: Yes [place]: Bulb Syringe, Stimulated, Warmed, [place] Used, Warmer Used Delivery Comments (Free Text/Narrative):: Patient found to be complete and began pushing. With maternal pushing effort head delivered from LEILANI presentation. Nuchal cord present, but tight and so not reduced. With gentle downward traction the shoulders and body delivered. placed on maternal abdomen. Cord clamped and cut. Cord blood obtained. Placenta allowed time to separate and expelled intact. Inspection of perineum showed no lacerations - General Info Date of Service: 05/21/20 - Patient Data Vitals - Most Recent: Last Vital Signs Temp 36.6 C 05/21/20 16:19 Pulse 86 05/21/20 16:19 Resp 18 05/21/20 16:19 BP 124/64 05/21/20 16:19 Pulse Ox 97 05/21/20 16:19 Weight - Most Recent: 109.543 kg - Problem List & Annotations (1) 38 weeks gestation of SNOMED Code(s): 95179446 Code(s): Z3A.38 - 38 WEEKS GESTATION OF Status: Acute Current Visit: No (2) Rh negative state in antepartum period SNOMED Code(s): 856935705 Status: Acute Current Visit: No (3) Vaginal delivery SNOMED Code(s): 942900986 Status: Acute Current Visit: No - Problem List Review Problem List Initiated/Reviewed/Updated: Yes - My Orders Last 24 Hours: My Active Orders 05/21/20 16:19 Patient Status [ADT] Routine Activity as Tolerated [RC] PFP Communication Order [RC] ASDIRECTED Heart Tones [RC] ASDIRECTED Notify Provider [RC] PFP Notify Provider [RC] PRN Peripheral IV Care [RC] . DIRECTED Urinary Catheter Assessment [RC] ASDIRECTED Vital Signs [RC] PER UNIT ROUTINE RAPID PLASMA REAGIN,RPR [CHEM] Routine Nalbuphine [Nubain] 10 mg IVPUSH Q2H PRN Ondansetron [Zofran] 4 mg IVPUSH Q4H PRN Sodium Chloride 0.9% [Saline Flush] 10 ml FLUSH ASDIRECTED PRN Electronic Heart Tones Ext w TOCO [WOMSER] Routine Electronic Heart Tones Internal [WOMSER] Per Unit Routine Peripheral IV Insertion Adult [OM.PC] Routine Resuscitation Status Routine 05/21/20 16:20 Pump Management, Intrathecal [RC] ASDIRECTED 05/21/20 16:30 Lactated Ringers [Ringers, Lactated] 1,000 ml IV ASDIRECTED Oxytocin/Lactated Ringers [Pitocin in LR 10 Units/1,000 ML] 10 unit in 1,000 ml IV .CONTINUOUS 05/21/20 Dinner Regular Diet [DIET] - Assessment Assessment:: PPD#0 - Plan Plan:: * Routine cares * breast feeding * Discharge home in 1-2 days
[2020-05-21] MEDS ORDERED: Benzocaine/Menthol 20%-0.5% Spray 56 GM Canister TOP PRN (20:25)
[2020-05-21] MEDS ORDERED: Docusate Sodium 100 MG Cap PO PRN (20:25)
[2020-05-21] MEDS ORDERED: Acetaminophen 325 MG Tab PO PRN (20:25)
[2020-05-21] MEDS ORDERED: Witch Hazel Medicated Pads 40/Jar TOP PRN (20:25)
[2020-05-21] MEDS: Ibuprofen 600 MG Tab PO PRN (21:09)
[2020-05-22] MEDS: Ibuprofen 600 MG Tab PO PRN ×3 (03:37→18:21)
--- NOTE | 2020-05-22 06:51 | PCM.PNPP ---
- General Info Date of Service: 05/22/20 Functional Status: Reports: Pain Controlled, Tolerating Diet, Ambulating, Urinating - Review of Systems General: Reports: No Symptoms Pulmonary: Reports: No Symptoms Cardiovascular: Reports: No Symptoms Gastrointestinal: Reports: No Symptoms Genitourinary: Reports: No Symptoms Musculoskeletal: Reports: No Symptoms - Patient Data Vital Signs - Most Recent: Last Vital Signs Temp 37.0 C 05/22/20 03:47 Pulse 80 05/22/20 03:47 Resp 16 05/22/20 03:47 BP 110/62 05/22/20 03:47 Pulse Ox 97 05/22/20 03:47 Weight - Most Recent: 109.543 kg Lab Results - Last 24 Hours: Laboratory Results - last 24 hr 05/21/20 05/21/20 05/21/20 Range/Units 16:45 16:58 16:58 WBC 9.73 (3.98-10.04) K/mm3 RBC 4.20 (3.98-5.22) M/mm3 Hgb 12.0 D (11.2-15.7) gm/dl Hct 36.3 (34.1-44.9) % MCV 86.4 (79.4-94.8) fl MCH 28.6 (25.6-32.2) pg MCHC 33.1 (32.2-35.5) g/dl RDW Std Deviation 43.4 (36.4-46.3) fL Plt Count 230 D (182-369) K/mm3 MPV 11.4 (9.4-12.3) fl Neut % (Auto) 68.8 (34.0-71.1) % Lymph % (Auto) 23.0 (19.3-51.7) % [place] % (Auto) 7.4 (4.7-12.5) % Eos % (Auto) 0.1 L (0.7-5.8) Baso % (Auto) 0.1 (0.1-1.2) % Neut # (Auto) 6.69 H (1.56-6.13) K/mm3 Lymph # (Auto) 2.24 (1.18-3.74) K/mm3 [place] # (Auto) 0.72 H (0.24-0.36) K/mm3 Eos # (Auto) 0.01 L (0.04-0.36) K/mm3 Baso # (Auto) 0.01 (0.01-0.08) K/mm3 COVID-19 ([place]) Negative (NEGATIVE) Blood Type O NEGATIVE Gel Antibody Screen Negative Med Orders - Current: Current Medications Acetaminophen (Tylenol) 650 mg PO Q4H PRN PRN Reason: mild pain or fever Benzocaine/Menthol (Dermoplast Pain Relief [place]) 0 gm TOP ASDIRECTED PRN PRN Reason: Perineal Comfort Measure Last Admin: 05/21/20 21:09 Dose: 1 can Documented by: Docusate Sodium (Colace) 100 mg PO BID PRN PRN Reason: Constipation Ibuprofen (Motrin) 600 mg PO Q6H PRN PRN Reason: Mild pain or fever Last Admin: 05/22/20 03:37 Dose: 600 mg Documented by: Genesis Salazar (Jc) 1 pad TOP ASDIRECTED PRN PRN Reason: Perineal Comfort Measure Last Admin: 05/21/20 21:08 Dose: 1 jar Documented by: Discontinued Medications Oxytocin/Lactated Ringer's (Pitocin In Lr 10 Units/1,000 Ml) 10 unit in 1,000 mls @ 500 mls/hr IV .CONTINUOUS DAVID Lactated Ringer's (Ringers, Lactated) 1,000 mls @ 100 mls/hr IV ASDIRECTED DAVID Last Admin: 05/21/20 16:58 Dose: 100 mls/hr Documented by: Lidocaine HCl (Xylocaine 1%) 50 ml INJECT ONETIME ONE Stop: 05/21/20 16:20 Nalbuphine HCl (Nubain) 10 mg IVPUSH Q2H PRN PRN Reason: Pain Ondansetron HCl (Zofran) 4 mg IVPUSH Q4H PRN PRN Reason: Nausea/Vomiting Sodium Chloride (Saline Flush) 10 ml FLUSH ASDIRECTED PRN PRN Reason: Keep Vein Open - Infant Interaction Infant Disposition, : [place] in Room with Family Infant Interaction: Holding Feeding: Breastfed Infant; Nursed Well Support Person: - Recovery Exam Fundal Tone: Firm Fundal Level: At Umbilicus Fundal Placement: Midline Lochia Amount: Small Lochia Color: [place]/Red Episiotomy/Laceration: None Bladder Status: Voiding Urinary Elimination: Voided - Exam General: Alert, Oriented, Cooperative GI/Abdominal Exam: Soft, Non-Tender Extremities: Normal Inspection Skin: Warm, Dry, Intact - Problem List & Annotations (1) 38 weeks gestation of SNOMED Code(s): 56499603 Code(s): Z3A.38 - 38 WEEKS GESTATION OF Status: Acute Current Visit: No (2) Rh negative state in antepartum period SNOMED Code(s): 065673915 Status: Acute Current Visit: No (3) Vaginal delivery SNOMED Code(s): 042325673 Status: Acute Current Visit: No - Problem List Review Problem List Initiated/Reviewed/Updated: Yes - My Orders Last 24 Hours: My Active Orders 05/21/20 16:19 Resuscitation Status Routine 05/21/20 Dinner Regular Diet [DIET] 05/21/20 20:25 Acetaminophen [TylenoL] 650 mg PO Q4H PRN Benzocaine/Menthol [Dermoplast Pain Relief [place]] See Dose Instructions TOP ASDIRECTED PRN Docusate Sodium [Colace] 100 mg PO BID PRN Ibuprofen [Motrin] 600 mg PO Q6H PRN witch Kin [Tucks] 1 pad TOP ASDIRECTED PRN Heat Therapy [OM.PC] PRN 05/21/20 20:25 Activity as Tolerated [RC] PER UNIT ROUTINE Up ad [place] [RC] ASDIRECTED Vital Signs [RC] ,15,, Assess Lochia [WOMSER] Per Unit Routine Assess Uterine Involution [WOMSER] Per Unit Routine Breast Pump [WOMSER] Per Unit Routine Ice Therapy [OM.PC] Per Unit Routine Perineal Care [OM.PC] Per Unit Routine Peripheral IV Discontinue [OM.PC] Routine Sitz Bath [OM.PC] Per Unit Routine 05/22/20 05:59 RHOGAM, [RHIG WORKUP, ] [BBK] Routine 05/22/20 20:25 Heat Therapy [OM.PC] PRN - Assessment Assessment:: PPD#1 - Plan Plan:: * Routine cares * breast feeding * Baby Rh positive, RHogam today * Discharge home today pending review/approval from Peds
--- NOTE | 2020-05-22 08:37 | PCM.DCSUM1 ---
Discharge Summary - Discharge Data Discharge Date: 05/22/20 Discharge Disposition: Home, Self-Care 01 Condition: Good - Referral to Home Health Primary Care Physician: Elizabeth Olsen MD - Discharge Diagnosis/Problem(s) (1) 38 weeks gestation of SNOMED Code(s): 83189749 ICD Code: Z3A.38 - 38 WEEKS GESTATION OF Status: Acute Current Visit: No (2) Rh negative state in antepartum period SNOMED Code(s): 613173434 Status: Acute Current Visit: No (3) Vaginal delivery SNOMED Code(s): 676632780 Status: Acute Current Visit: No - Patient Instructions Diet: Regular Diet as Tolerated Activity: As Tolerated Activity, Other: Pelvic rest for 6 weeks Driving: May Drive Today Showering/Bathing: May Shower Showering/Bathing, Other: May Bathe Notify Provider of: Fever, Increased Pain, Swelling and Redness, Drainage, Nausea and/or Vomiting - Discharge Plan *PRESCRIPTION DRUG MONITORING PROGRAM REVIEWED*: No *COPY OF PRESCRIPTION DRUG MONITORING REPORT IN PATIENT JUNIOR: No Home Medications: Home Meds Docusate Sodium [Colace] 100 mg PO BID PRN cap 05/22/20 [Rx] Ibuprofen [Motrin] 600 mg PO Q6H PRN tablet 05/22/20 [Rx] Referrals: Elizabeth Olsen MD [Primary Care Provider] - (3 weeks for check ) - Patient Data Vitals - Most Recent: Last Vital Signs Temp 37.0 C 05/22/20 03:47 Pulse 80 05/22/20 03:47 Resp 16 05/22/20 03:47 BP 110/62 05/22/20 03:47 Pulse Ox 97 05/22/20 03:47 Weight - Most Recent: 109.543 kg Lab Results - Last 24 hrs: Laboratory Results - last 24 hr 05/21/20 05/21/20 05/21/20 Range/Units 16:45 16:58 16:58 WBC 9.73 (3.98-10.04) K/mm3 RBC 4.20 (3.98-5.22) M/mm3 Hgb 12.0 D (11.2-15.7) gm/dl Hct 36.3 (34.1-44.9) % MCV 86.4 (79.4-94.8) fl MCH 28.6 (25.6-32.2) pg MCHC 33.1 (32.2-35.5) g/dl RDW Std Deviation 43.4 (36.4-46.3) fL Plt Count 230 D (182-369) K/mm3 MPV 11.4 (9.4-12.3) fl Neut % (Auto) 68.8 (34.0-71.1) % Lymph % (Auto) 23.0 (19.3-51.7) % [place] % (Auto) 7.4 (4.7-12.5) % Eos % (Auto) 0.1 L (0.7-5.8) Baso % (Auto) 0.1 (0.1-1.2) % Neut # (Auto) 6.69 H (1.56-6.13) K/mm3 Lymph # (Auto) 2.24 (1.18-3.74) K/mm3 [place] # (Auto) 0.72 H (0.24-0.36) K/mm3 Eos # (Auto) 0.01 L (0.04-0.36) K/mm3 Baso # (Auto) 0.01 (0.01-0.08) K/mm3 COVID-19 ([place]) Negative (NEGATIVE) Blood Type O NEGATIVE Gel Antibody Screen Negative Med Orders - Current: Current Medications Acetaminophen (Tylenol) 650 mg PO Q4H PRN PRN Reason: mild pain or fever Benzocaine/Menthol (Dermoplast Pain Relief [place]) 0 gm TOP ASDIRECTED PRN PRN Reason: Perineal Comfort Measure Last Admin: 05/21/20 21:09 Dose: 1 can Documented by: Docusate Sodium (Colace) 100 mg PO BID PRN PRN Reason: Constipation Ibuprofen (Motrin) 600 mg PO Q6H PRN PRN Reason: Mild pain or fever Last Admin: 05/22/20 03:37 Dose: 600 mg Documented by: Genesis Salazar (Jc) 1 pad TOP ASDIRECTED PRN PRN Reason: Perineal Comfort Measure Last Admin: 05/21/20 21:08 Dose: 1 jar Documented by: Discontinued Medications Oxytocin/Lactated Ringer's (Pitocin In Lr 10 Units/1,000 Ml) 10 unit in 1,000 mls @ 500 mls/hr IV .CONTINUOUS DAVID Lactated Ringer's (Ringers, Lactated) 1,000 mls @ 100 mls/hr IV ASDIRECTED DAVID Last Admin: 05/21/20 16:58 Dose: 100 mls/hr Documented by: Lidocaine HCl (Xylocaine 1%) 50 ml INJECT ONETIME ONE Stop: 05/21/20 16:20 Nalbuphine HCl (Nubain) 10 mg IVPUSH Q2H PRN PRN Reason: Pain Ondansetron HCl (Zofran) 4 mg IVPUSH Q4H PRN PRN Reason: Nausea/Vomiting Sodium Chloride (Saline Flush) 10 ml FLUSH ASDIRECTED PRN PRN Reason: Keep Vein Open
[2020-05-23] MEDS: Ibuprofen 600 MG Tab PO PRN (05:11)
--- NOTE | 2020-05-23 09:01 | PCM.DCSUM1 ---
Discharge Summary - Hospital Course Free Text/Narrative:: [facility] L/D Delivery Note Patient Name: IRINA BERGMAN Date of : 89 Patient Status: Inpatient Attending Provider: Elizabeth Olsen Date: 05/21/20 20:14 Initialization Date: 05/21/20 20:14 L & D Note - General Info Date of Service: 05/21/20 - Delivery Note Labor: Spontaneous Delivery Outcome: Livebirth Infant Delivery Method: Spontaneous Vaginal Delivery-Single Delivery Mode: Spontaneous Presentation: Right Occiput Anterior (LEILANI) Nuchal Cord: Present Anesthesia Type: None Amniotic Fluid Description: Clear Episiotomy Type: None Laceration: None Placenta: Intact, Spontaneous Cord: 3 Vessels Estimated Blood Loss: 100 Resuscitation Needed: Yes : Bulb Syringe, Stimulated, Warmed, [place] Used, Warmer Used Delivery Comments (Free Text/Narrative):: Patient found to be complete and began pushing. With maternal pushing effort head delivered from LEILANI presentation. Nuchal cord present, but tight and so not reduced. With gentle downward traction the shoulders and body delivered. placed on maternal abdomen. Cord clamped and cut. Cord blood obtained. Placenta allowed time to separate and expelled intact. Inspection of perineum showed no lacerations - General Info Date of Service: 05/21/20 - Patient Data Vitals - Most Recent: Last Vital Signs Temp 36.6 C 05/21/20 16:19 Pulse 86 05/21/20 16:19 Resp 18 05/21/20 16:19 BP 124/64 05/21/20 16:19 Pulse Ox 97 05/21/20 16:19 Weight - Most Recent: 109.543 kg - Problem List & Annotations (1) 38 weeks gestation of SNOMED Code(s): 78156027 Code(s): Z3A.38 - 38 WEEKS GESTATION OF Status: Acute Current Visit: No (2) Rh negative state in antepartum period SNOMED Code(s): 500617084 Status: Acute Current Visit: No (3) Vaginal delivery SNOMED Code(s): 076682603 Status: Acute Current Visit: No - Problem List Review Problem List Initiated/Reviewed/Updated: Yes - My Orders Last 24 Hours: My Active Orders 05/21/20 16:19 Patient Status [ADT] Routine Activity as Tolerated [RC] PFP Communication Order [RC] ASDIRECTED Heart Tones [RC] ASDIRECTED Notify Provider [RC] PFP Notify Provider [RC] PRN Peripheral IV Care [RC] . DIRECTED Urinary Catheter Assessment [RC] ASDIRECTED Vital Signs [RC] PER UNIT ROUTINE RAPID PLASMA REAGIN,RPR [CHEM] Routine Nalbuphine [Nubain] 10 mg IVPUSH Q2H PRN Ondansetron [Zofran] 4 mg IVPUSH Q4H PRN Sodium Chloride 0.9% [Saline Flush] 10 ml FLUSH ASDIRECTED PRN Electronic Heart Tones Ext w TOCO [WOMSER] Routine Electronic Heart Tones Internal [WOMSER] Per Unit Routine Peripheral IV Insertion Adult [OM.PC] Routine Resuscitation Status Routine 05/21/20 16:20 Pump Management, Intrathecal [RC] ASDIRECTED 05/21/20 16:30 Lactated Ringers [Ringers, Lactated] 1,000 ml IV ASDIRECTED Oxytocin/Lactated Ringers [Pitocin in LR 10 Units/1,000 ML] 10 unit in 1,000 ml IV .CONTINUOUS 05/21/20 Dinner Regular Diet [DIET] - Assessment Assessment:: PPD#0 - Plan Plan:: * Routine cares * breast feeding * Discharge home in 1-2 days HPI Initial Comments: [facility] L/D Delivery Note Patient Name: IRINA BERGMAN Date of : 89 Patient Status: Inpatient Attending Provider: Elizabeth Olsen Date: 05/21/20 20:14 Initialization Date: 05/21/20 20:14 L & D Note - General Info Date of Service: 05/21/20 - Delivery Note Labor: Spontaneous Delivery Outcome: Livebirth Delivery Method: Spontaneous Vaginal Delivery-Single Delivery Mode: Spontaneous Presentation: Right Occiput Anterior (LEILANI) Nuchal Cord: Present Anesthesia Type: None Amniotic Fluid Description: Clear Episiotomy Type: None Laceration: None Placenta: Intact, Spontaneous Cord: 3 Vessels Estimated Blood Loss: 100 Resuscitation Needed: Yes [place]: Bulb Syringe, Stimulated, Warmed, [place] Used, Warmer Used Delivery Comments (Free Text/Narrative):: Patient found to be complete and began pushing. With maternal pushing effort head delivered from LEILANI presentation. Nuchal cord present, but tight and so not reduced. With gentle downward traction the shoulders and body delivered. placed on maternal abdomen. Cord clamped and cut. Cord blood obtained. Placenta allowed time to separate and expelled intact. Inspection of perineum showed no lacerations - General Info Date of Service: 05/21/20 - Patient Data Vitals - Most Recent: Last Vital Signs Temp 36.6 C 05/21/20 16:19 Pulse 86 05/21/20 16:19 Resp 18 05/21/20 16:19 BP 124/64 05/21/20 16:19 Pulse Ox 97 05/21/20 16:19 Weight - Most Recent: 109.543 kg - Problem List & Annotations (1) 38 weeks gestation of SNOMED Code(s): 05421788 Code(s): Z3A.38 - 38 WEEKS GESTATION OF Status: Acute Current Visit: No (2) Rh negative state in antepartum period SNOMED Code(s): 637941204 Status: Acute Current Visit: No (3) Vaginal delivery SNOMED Code(s): 811591932 Status: Acute Current Visit: No - Problem List Review Problem List Initiated/Reviewed/Updated: Yes - My Orders Last 24 Hours: My Active Orders 05/21/20 16:19 Patient Status [ADT] Routine Activity as Tolerated [RC] PFP Communication Order [RC] ASDIRECTED Heart Tones [RC] ASDIRECTED Notify Provider [RC] PFP Notify Provider [RC] PRN Peripheral IV Care [RC] . DIRECTED Urinary Catheter Assessment [RC] ASDIRECTED Vital Signs [RC] PER UNIT ROUTINE RAPID PLASMA REAGIN,RPR [CHEM] Routine Nalbuphine [Nubain] 10 mg IVPUSH Q2H PRN Ondansetron [Zofran] 4 mg IVPUSH Q4H PRN Sodium Chloride 0.9% [Saline Flush] 10 ml FLUSH ASDIRECTED PRN Electronic Heart Tones Ext w TOCO [WOMSER] Routine Electronic Heart Tones Internal [WOMSER] Per Unit Routine Peripheral IV Insertion Adult [OM.PC] Routine Resuscitation Status Routine 05/21/20 16:20 Pump Management, Intrathecal [RC] ASDIRECTED 05/21/20 16:30 Lactated Ringers [Ringers, Lactated] 1,000 ml IV ASDIRECTED Oxytocin/Lactated Ringers [Pitocin in LR 10 Units/1,000 ML] 10 unit in 1,000 ml IV .CONTINUOUS 05/21/20 Dinner Regular Diet [DIET] - Assessment Assessment:: PPD#0 - Plan Plan:: * Routine cares * breast feeding * Discharge home in 1-2 days Brief History: [facility] LIVE . L/D Delivery Note. Patient Name: IRINA BERGMAN [facility] Record Number: [id number]. Date of : [birth year]Patient Status: Inpatient. Attending Provider: Elizabeth Olsenunt Number: [id number]. Date: 05/21/20 20:14Initialization Date: 05/21/20 20:14. L & D Note. - General Info. Date of Service: 05/21/20. - Delivery Note. Labor: Spontaneous. Delivery Outcome: Livebirth. Delivery Method: Spontaneous Vaginal Delivery-Single. Delivery Mode: Spontaneous. Presentation: Right Occiput Anterior (LEILANI). Nuchal Cord: Present. Anesthesia Type: None. Amniotic Fluid Description: Clear. Episiotomy Type: None. Laceration: None. Placenta: Intact, Spontaneous. Cord: 3 Vessels. Estimated Blood Loss: 100. Resuscitation Needed: Yes. : Bulb Syringe, Stimulated, Warmed, [place] Used, Warmer Used. Delivery Comments (Free Text/Narrative):: Patient found to be complete and began pushing. With maternal pushing effort head delivered from LEILANI presentation. Nuchal cord present, but tight and so not reduced. With gentle downward traction the shoulders and body delivered. Infant placed on maternal abdomen. Cord clamped and cut. Cord blood obtained. Placenta allowed time to separate and expelled intact. Inspection of perineum showed no lacerations. - General Info. Date of Service: 05/21/20. - Patient Data. Vitals - Most Recent: Last Vital Signs. Temp 36.6 C 05/21/20 16:19. Pulse 86 05/21/20 16:19. Resp 18 09/03/20 16:19. BP 124/64 05/21/20 16:19. Pulse Ox 97 05/21/20 16:19. Weight - Most Recent: 109.543 kg. - Problem List & Annotations. (1) 38 weeks gestation of . SNOMED Code(s): 37318218. Code(s): Z3A.38 - 38 WEEKS GESTATION OF Status: Acute Current Visit: No. (2) Rh negative state in antepartum period. SNOMED Code(s): 109941807. Status: Acute Current Visit: No. (3) Vaginal delivery. SNOMED Code(s): 494618950. Status: Acute Current Visit: No. - Problem List Review. Problem List Initiated/Reviewed/Updated: Yes. - My Orders. Last 24 Hours: My Active Orders. 05/21/20 16:19. Patient Status [ADT] Routine. Activity as Tolerated [RC] PFP. Communication Order [RC] ASDIRECTED. Heart Tones [RC] ASDIRECTED. Notify Provider [RC] PFP. Notify Provider [RC] PRN. Peripheral IV Care [RC] . DIRECTED. Urinary Catheter Assessment [RC] ASDIRECTED. Vital Signs [RC] PER UNIT ROUTINE. RAPID PLASMA REAGIN,RPR [CHEM] Routine. Nalbuphine [Nubain] 10 mg IVPUSH Q2H PRN. Ondansetron [Zofran] 4 mg IVPUSH Q4H PRN. Sodium Chloride 0.9% [Saline Flush] 10 ml FLUSH ASDIRECTED PRN. Electronic Heart Tones Ext w TOCO [WOMSER] Routine. Electronic Heart Tones Internal [WOMSER] Per Unit Routine. Peripheral IV Insertion Adult [OM.PC] Routine. Resuscitation Status Routine. 05/21/20 16:20. Pump Management, Intrathecal [RC] ASDIRECTED. 05/21/20 16:30. Lactated Ringers [Ringers, Lactated] 1,000 ml IV ASDIRECTED. Oxytocin/Lactated Ringers [Pitocin in LR 10 Units/1,000 ML] 10 unit in 1,000 ml IV .CONTINUOUS. 05/21/20 Dinner. Regular Diet [DIET]. - Assessment. Assessment:: PPD#0. - Plan. Plan:: Routine cares. breast feeding. Discharge home in 1-2 days Diagnosis: Stroke: No - Discharge Data Discharge Date: 05/23/20 Discharge Disposition: Home, Self-Care 01 Condition: Good - Referral to Home Health Primary Care Physician: Elizabeth Olsen MD - Discharge Diagnosis/Problem(s) (1) 38 weeks gestation of SNOMED Code(s): 46164320 ICD Code: Z3A.38 - 38 WEEKS GESTATION OF Status: Acute Current Visit: No (2) Rh negative, delivered, current hospitalization SNOMED Code(s): 148981824, 273847790 ICD Code: O09.899 - SUPERVISION OF OTHER HIGH RISK PREGNANCIES, UNSP TRIMESTER Status: Acute Current Visit: No (3) GBS carrier SNOMED Code(s): 3967439770790 ICD Code: Z22.330 - CARRIER OF GROUP B STREPTOCOCCUS Status: Acute Current Visit: No - Patient Summary/Data Complications: None Consults: None Hospital Course: Uneventful - Patient Instructions Diet: Regular Diet as Tolerated Activity: As Tolerated Activity, Other: Pelvic rest for 6 weeks Driving: May Drive Today Showering/Bathing: May Shower Showering/Bathing, Other: May Bathe Notify Provider of: Fever, Increased Pain, Swelling and Redness, Drainage, Nausea and/or Vomiting - Discharge Plan *PRESCRIPTION DRUG MONITORING PROGRAM REVIEWED*: No *COPY OF PRESCRIPTION DRUG MONITORING REPORT IN PATIENT JUNIOR: No Home Medications: Home Meds Docusate Sodium [Colace] 100 mg PO BID PRN cap 05/22/20 [Rx] Ibuprofen [Motrin] 600 mg PO Q6H PRN tablet 05/22/20 [Rx] Acetaminophen [Tylenol] 650 mg PO Q6H PRN tablet 05/23/20 [Rx] Patient Handouts: Care After Vaginal Delivery Referrals: Elizabeth Olsen MD [Primary Care Provider] - (3 weeks for check ) - Discharge Summary/Plan Comment DC Time >30 min.: No - Patient Data Vitals - Most Recent: Last Vital Signs Temp 97.5 F 05/23/20 03:57 Pulse 87 05/23/20 03:57 Resp 16 05/23/20 03:57 BP 113/55 L 05/23/20 03:57 Pulse Ox 95 05/23/20 03:57 Weight - Most Recent: 241 lb 8 oz I&O - Last 24 hours: Intake & Output 0905/23/20 05/23/20 22:59 06:59 14:59 Intake Total 1220 Balance 1220 Lab Results - Last 24 hrs: Laboratory Results - last 24 hr 05/22/20 Range/Units 05:59 Blood Type O NEGATIVE Gel Antibody Screen Negative Rhogam Indicated Yes, baby rh pos H Med Orders - Current: Current Medications Acetaminophen (Tylenol) 650 mg PO Q4H PRN PRN Reason: mild pain or fever Benzocaine/Menthol (Dermoplast Pain Relief [place]) 0 gm TOP ASDIRECTED PRN PRN Reason: Perineal Comfort Measure Last Admin: 05/21/20 21:09 Dose: 1 can Documented by: Docusate Sodium (Colace) 100 mg PO BID PRN PRN Reason: Constipation Ibuprofen (Motrin) 600 mg PO Q6H PRN PRN Reason: Mild pain or fever Last Admin: 05/23/20 05:11 Dose: 600 mg Documented by: Genesis Salazar (Jc) 1 pad TOP ASDIRECTED PRN PRN Reason: Perineal Comfort Measure Last Admin: 05/21/20 21:08 Dose: 1 jar Documented by: Discontinued Medications Oxytocin/Lactated Ringer's (Pitocin In Lr 10 Units/1,000 Ml) 10 unit in 1,000 mls @ 500 mls/hr IV .CONTINUOUS DAVID Lactated Ringer's (Ringers, Lactated) 1,000 mls @ 100 mls/hr IV ASDIRECTED DAVID Last Admin: 05/21/20 16:58 Dose: 100 mls/hr Documented by: Lidocaine HCl (Xylocaine 1%) 50 ml INJECT ONETIME ONE Stop: 05/21/20 16:20 Nalbuphine HCl (Nubain) 10 mg IVPUSH Q2H PRN PRN Reason: Pain Ondansetron HCl (Zofran) 4 mg IVPUSH Q4H PRN PRN Reason: Nausea/Vomiting Sodium Chloride (Saline Flush) 10 ml FLUSH ASDIRECTED PRN PRN Reason: Keep Vein Open
[2020-05-23 12:31] VITALS: BP 135/67; PULSE 88
== END 2020-05-23 11:20 | disposition home or self-care (01) | DRG 807 ==
LOC: JD.OB 16:10 → OBSVTOIN 20:02 → JD.OB 20:02
PROVIDERS: ADMIT Obstetrics & Gynecology; ATTEND Obstetrics & Gynecology
PROC: 10E0XZZ Delivery of Products of Conception, External Approach (ICD-10-PCS; principal; 2020-05-21)
DX: O69.1XX0 Labor and delivery complicated by cord around neck, with compression, not applicable or unspecified (principal); Z37.0 Single live birth; O99.344 Other mental disorders complicating childbirth; F32.9 Major depressive disorder, single episode, unspecified; O99.214 Obesity complicating childbirth; E66.9 Obesity, unspecified; Z20.828 Contact with and (suspected) exposure to other viral communicable diseases; Z3A.38 38 weeks gestation of pregnancy; Z91.09 Other allergy status, other than to drugs and biological substances; Z88.5 Allergy status to narcotic agent
CPT/HCPCS: 36415; 59025; 59409; 85025; 86850; 86900; 86901; A9270-GY; J2790; J7120; U0002

== ENCOUNTER 2023-01-19 02:24 | Emergency (ER) | payer OTHER ==
[2023-01-19 02:39] VITALS: PULSE 92
[2023-01-19] MEDS ORDERED: Sodium Chloride 0.9% 1,000 ML IV ONE (02:46)
[2023-01-19] MEDS ORDERED: Ondansetron 4 MG/2 ML SDV IVPUSH ONE (02:47)
[2023-01-19] MEDS ORDERED: LORazepam 2 MG/ML SDV IVPUSH PRN (02:47)
[2023-01-19 04:01] VITALS: BP 111/63
== END 2023-01-19 04:23 | disposition home or self-care (01) ==
LOC: JD.ED 02:24
DX: G43.909 Migraine, unspecified, not intractable, without status migrainosus (principal); E66.9 Obesity, unspecified; Z88.5 Allergy status to narcotic agent; Z91.048 Other nonmedicinal substance allergy status; Z88.8 Allergy status to other drugs, medicaments and biological substances; Z68.41 Body mass index [BMI] 40.0-44.9, adult
CPT/HCPCS: 70450; 96361; 96374; 96375; 99284; J2060; J2405; J7030

== ENCOUNTER 2023-09-10 23:24 | Emergency (ER) | payer OTHER ==
[2023-09-10] MEDS ORDERED: Sodium Chloride 0.9% 10 ML Syringe FLUSH PRN (23:40)
[2023-09-10] MEDS ORDERED: HYDROmorphone 0.5 MG/0.5 ML Syringe IVPUSH ONE (23:41)
[2023-09-10] MEDS ORDERED: Sodium Chloride 0.9% 100 ML IV SCH (23:45)
[2023-09-10] MEDS ORDERED: Sodium Chloride 0.9% 1,000 ML IV SCH (23:45)
[2023-09-10 23:47] LABS: BASOPHILS PERCENT AUTO 0.2 % (0.0-1.0); EOSINOPHILS PERCENT AUTO 0.2 % (0.0-6.0); HEMATOCRIT 39.6 % (37.0-47.0); HEMOGLOBIN 13.6 gm/dl (12.0-16.0); IMMATURE GRAN ABSOLUTE AUTO 0.03 K/mm3 (0.00-0.05); IMMATURE GRAN PERCENT AUTO 0.6 % (0.0-0.4); LYMPHOCYTES ABSOLUTE AUTO 1.4 K/mm3 (1.0-4.8); MEAN CORPUSCULAR HEMOGLOBIN 29.2 pg (28.0-32.0); MEAN CORPUSCULAR HGB CONC 34.3 g/dl (32.0-36.0); MEAN PLATELET VOLUME 10.4 fl (9.4-12.3); MONOCYTES ABSOLUTE AUTO 0.4 K/mm3 (0.0-0.8); MONOCYTES PERCENT AUTO 8.1 % (0.0-8.0); NEUTROPHILS ABSOLUTE AUTO 3.2 K/mm3 (1.8-7.7); NEUTROPHILS PERCENT AUTO 62.9 % (41.0-71.0); PLATELET COUNT,PLT 265 K/mm3 (150-400); RED BLOOD CELL COUNT 4.66 M/mm3 (4.10-5.30); WHITE BLOOD CELL COUNT,WBC 5.08 K/mm3 (3.9-11.3)
[2023-09-10] MEDS ORDERED: Iopamidol 755 Mg/ML 100 ML Bottle IVPUSH ONE (23:56)
[2023-09-11 00:09] LABS: ALANINE AMINOTRANSFERASE,ALT 27 U/L (14-59); ALBUMIN 3.7 g/dl (3.4-5.0); ALKALINE PHOSPHATASE 93 U/L (46-116); ANION GAP 18.2 (5-15); ASPARTATE AMNIOTRANSFERASE,AST 19 U/L (15-37); BLOOD UREA NITROGEN,BUN 13 mg/dL (7-18); BUN/CREATININE RATIO 11.8 (14-18); C-REACTIVE PROTEIN 1.9 mg/dL (<1.0); CALCIUM 8.9 mg/dL (8.5-10.1); CARBON DIOXIDE,CO2 23 mEq/L (21-32); CHLORIDE,CL 103 mEq/L (98-107); CREATININE 1.1 mg/dL (0.55-1.02); EST CRCL DRUG DOSING (CG) 56.94 mL/min; ESTIMATED GFR 70 mL/min (>60); GLUCOSE RANDOM 97 mg/dL (70-99); POTASSIUM,K 3.2 mEq/L (3.5-5.1); PROTEIN TOTAL,TP 7.6 g/dl (6.4-8.2); SODIUM,NA 141 mEq/L (136-145); TROPONIN I HIGH SENSITIVITY < 4 pg/mL (<=51)
[2023-09-11] MEDS ORDERED: HYDROmorphone 0.5 MG/0.5 ML Syringe IVPUSH ONE (00:40)
[2023-09-11 01:00] LABS: CORONAVIRUS COVID-19 NAA POSITIVE (NEGATIVE); INFLUENZA A NAA NEGATIVE (NEGATIVE); RESPIRATORY SYNCYTIAL VIR NAA NEGATIVE (NEGATIVE)
[2023-09-11] MEDS ORDERED: Alum Hydrox/Mag Hydrox/Simeth 30 ML, Lidocaine 2% 15 ML PO ONE ×2 (01:44)
[2023-09-11 02:16] VITALS: BP 121/52; PULSE 105
== END 2023-09-11 02:15 | disposition home or self-care (01) ==
LOC: JD.ED 23:24
DX: U07.1 COVID-19 (principal); R07.89 Other chest pain; E66.9 Obesity, unspecified; Z79.899 Other long term (current) drug therapy; Z88.5 Allergy status to narcotic agent; Z88.8 Allergy status to other drugs, medicaments and biological substances; Z91.048 Other nonmedicinal substance allergy status; Z68.39 Body mass index [BMI] 39.0-39.9, adult
CPT/HCPCS: 0241U; 36415; 71275; 80053; 84484; 85025; 85379; 86140; 93005; 96361; 96374; 96376; 99285; A9270; J1170; J3490; J7030; Q9967; 93010; 99284

== ENCOUNTER 2023-12-30 18:15 | Emergency (ER) | payer OTHER ==
[2023-12-30 21:57] LABS: APPEARANCE,URINE CLEAR (Clear); BILIRUBIN,URINE 1+ (Negative); COLOR,URINE YELLOW (Yellow); GLUCOSE,URINE NEGATIVE (Negative); KETONES,URINE 2+ (Negative); LEUKOCYTE ESTERASE,URINE NEGATIVE (Negative); NITRITE,URINE NEGATIVE (Negative); OCCULT BLOOD,URINE TRACE-INTACT (Negative); PROTEIN,URINE 1+ (Negative); UROBILINOGEN,URINE 0.2 (0.2-1.0)
[2023-12-30 22:13] LABS: BACTERIA,URINE MODERATE /hpf (FEW); MUCUS,URINE FEW /hpf (FEW); RBC,URINE 0-5 /hpf (0-5); WBC,URINE 0-5 /hpf (0-5)
[2023-12-30 22:13] LABS: HEMATOCRIT 41.1 % (37.0-47.0); HEMOGLOBIN 14.3 gm/dl (12.0-16.0); IMMATURE GRAN ABSOLUTE AUTO 0.03 K/mm3 (0.00-0.05); IMMATURE GRAN PERCENT AUTO 0.3 % (0.0-0.4); LYMPHOCYTES ABSOLUTE AUTO 0.6 K/mm3 (1.0-4.8); LYMPHOCYTES PERCENT AUTO 6.5 % (24.0-44.0); MEAN CORPUSCULAR HEMOGLOBIN 29.1 pg (28.0-32.0); MEAN CORPUSCULAR HGB CONC 34.8 g/dl (32.0-36.0); MEAN CORPUSCULAR VOLUME 83.7 fl (83.0-99.0); MEAN PLATELET VOLUME 10.6 fl (9.4-12.3); MONOCYTES ABSOLUTE AUTO 0.4 K/mm3 (0.0-0.8); MONOCYTES PERCENT AUTO 4.6 % (0.0-8.0); NEUTROPHILS PERCENT AUTO 88.6 % (41.0-71.0); PLATELET COUNT,PLT 258 K/mm3 (150-400); RED BLOOD CELL COUNT 4.91 M/mm3 (4.10-5.30); WHITE BLOOD CELL COUNT,WBC 8.99 K/mm3 (3.9-11.3)
[2023-12-30] MEDS: Ketorolac 15 MG/ML SDV IVPUSH ONE (22:17)
[2023-12-30] MEDS: Sodium Chloride 0.9% 1,000 ML IV ONE (22:17)
[2023-12-30] MEDS: Ondansetron 4 MG/2 ML SDV IVPUSH ONE (22:19)
[2023-12-30 22:24] LABS: A/G RATIO 1.1 (1-2); BILIRUBIN DIRECT 0.2 mg/dl (0.0-0.2); BILIRUBIN TOTAL 1.9 mg/dL (0.2-1.0); BUN/CREATININE RATIO 13.6 (14-18); C-REACTIVE PROTEIN 2.45 mg/dL (<0.30); CALCIUM 9.2 mg/dL (8.5-10.1); CREATININE 1.1 mg/dL (0.55-1.02); EST CRCL DRUG DOSING (CG) 56.94 mL/min; PROTEIN TOTAL,TP 7.8 g/dl (6.4-8.2)
[2023-12-31] MEDS: Iopamidol 612 MG/ML 100 ML Bottle IVPUSH ONE (00:05)
[2023-12-31] MEDS: Sodium Chloride 0.9% 10 ML Syringe FLUSH PRN (00:06)
[2023-12-31] MEDS ORDERED: Naloxone 0.4 MG/ML SDV IVPUSH PRN (00:25)
[2023-12-31] MEDS: Morphine 4 MG/ML Syringe IVPUSH ONE (00:35)
[2023-12-31 02:50] VITALS: BP 100/58; PULSE 77
== END 2023-12-31 01:14 | disposition home or self-care (01) ==
LOC: JD.ED 18:15
DX: K57.90 Diverticulosis of intestine, part unspecified, without perforation or abscess without bleeding (principal); N83.11 Corpus luteum cyst of right ovary; E66.9 Obesity, unspecified; Z91.048 Other nonmedicinal substance allergy status; Z88.8 Allergy status to other drugs, medicaments and biological substances; Z88.5 Allergy status to narcotic agent; Z79.899 Other long term (current) drug therapy; Z68.37 Body mass index [BMI] 37.0-37.9, adult
CPT/HCPCS: 36415; 74177; 80053; 81001; 81025; 82248; 83605; 83690; 85025; 86140; 87086; 96361; 96374; 96375; 99284; J1885; J2270; J2405; J3490; J7030; Q9967